=== PATIENT | female | born 1960 | race Caucasian/White ===

== ENCOUNTER → 2016-07-03 | Outpatient (CLI) | payer BC | LOC: GMAM 14:17 | PROVIDERS: ATTEND Family Medicine | DX: I42.2 Other hypertrophic cardiomyopathy (principal) ==

== ENCOUNTER 2017-03-12 14:10 | Inpatient (IN) | payer BC ==
--- NOTE | 2017-03-12 15:00 | HP ---
SUPERVISING PHYSICIAN: Christopher Stephenson MD CHIEF COMPLAINT: Shortness of breath. HISTORY OF PRESENT ILLNESS: This is a 56-year-old female patient who has had complaints of shortness of breath for the past four to five days. It has progressively worsened to the point that she had doubled her Lasix. She also reported a significant weight gain. She went in to see her primary care physician, Dr. Estela Gagnon, this morning and at her appointment, she had scattered crackles throughout her lung brasher. Her O2 sats were in the upper 80s. She was significantly short of breath. Dr. Gagnon did some lab on her and her white count was 4.8, hemoglobin 8.1, hematocrit 24.9. Glucose was 82, BUN 46, creatinine 1.7. She has a significant history of gastroparesis due to her diabetes. Because of her shortness of breath and no relief in spite of increasing her Lasix, the patient was directly admitted to the hospital. PAST MEDICAL HISTORY: 1. Insulin-dependent diabetes mellitus. 2. Hypertension. 3. Chronic pain syndrome. 4. Anemia and chronic kidney disease. 5. Generalized anxiety disorder. 6. Gastroesophageal reflux disease. 7. Congestive heart failure with an ejection fraction in June of 2016 of 55% . PAST SURGICAL HISTORY: 1. Hysterectomy. 2. Cholecystectomy. 3. 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 CURRENT MEDICATIONS: Per the EMR and awaiting verification. ALLERGIES: PENICILLIN, PHENERGAN. FAMILY HISTORY: Positive for diabetes, coronary artery disease and cerebrovascular accident. SOCIAL HISTORY: She is . She has two children. She denies any tobacco or ETOH or illicit drug use. REVIEW OF SYSTEMS: GENERAL: Positive for fatigue and weight gain. Negative for fever. HEENT: Negative for sinus symptoms, ear pain, vision changes or sore throat. RESPIRATORY: Positive for shortness of breath and wheezing. Negative for cough. CARDIAC: Positive for pedal edema. Negative for chest pain or tachycardia. GASTROINTESTINAL: Negative for nausea, vomiting, diarrhea, constipation or abdominal pain. GENITOURINARY: Negative for hematuria, dysuria or polyuria. NEUROLOGIC: Positive for weakness. Negative for headache, dizziness, or seizures. PHYSICAL EXAMINATION: VITAL SIGNS: Afebrile. Heart rate 75. Blood pressure 190/81. Respiratory rate 20. O2 saturation 89%. GENERAL: This is a 56-year-old, obese female who appears to be moderately ill. HEENT: Normocephalic, atraumatic. Pupils are equal and reactive. Oropharynx is clear. NECK: Supple without mass. No discernible jugular venous distention. RESPIRATORY: A few scattered crackles throughout. There are decreased breath sounds at the bases. No wheezing noted. She is dyspneic and can only speak in short phrases and cannot speak in complete sentences. CARDIOVASCULAR: Regular rate and rhythm. ABDOMEN: Soft, nondistended, nontender. Bowel sounds are positive. EXTREMITIES: Bilateral pedal edema at +1 to +2. Pedal pulses are palpable at + 1 bilaterally. SKIN: Warm and dry. NEUROLOGIC: Awake, alert and oriented times three. LABORATORY: As per the history of present illness plus D-dimer is 584, BNP 1, 040, magnesium 2.4, glucose 398. Chest x-ray shows no radiographic abnormalities. All other labs and films have been reviewed via the EMR. ASSESSMENT: 1. Acute exacerbation of congestive heart failure, with EF of 55% and unknown etiology. 2. Shortness of breath, most likely secondary to #1. 3. Diabetes mellitus, type 2, poorly controlled. 4. Gastroparesis secondary to her diabetes with multiple admissions due to nausea and vomiting from the gastroparesis. 5. Gastroesophageal reflux disease. 6. Hypertension. 7. Chronic kidney disease, stage 3, with a baseline creatinine of 1.6 to 2.3. 8. Anemic and chronic kidney disease, presently with a hemoglobin of 8.1 and hematocrit 2of 4.9. PLAN: We will admit the patient to the hospital. I will restart her home medications. I have also placed her on a.c. and h.s. sliding scale insulin. I have given her an initial dose of Bumex and repeated it this evening. I will change her Lasix to IV due to her poor absorption related to her gastroparesis. I will need to get her records from her primary care physician for her echocardiogram report. I have given her Protonix for ulcer prophylaxis and SCDs for her DVT prophylaxis. Because of her anemia, I will hold off on giving her any Lovenox. I will also do stool guaiacs although her anemia is most likely due to her chronic kidney disease. Her D-dimer is elevated, so I will do a bilateral lower extremity ultrasound. We are unable to do a CT of the chest at this time due to her elevated creatinine. I will do some routine lab in the morning and we will continue to monitor closely and follow as needed. Dr. Stephenson is the collaborating physician and available for consultation. . #[id number] [facility]ITAL[facility]
[2017-03-12] MEDS ORDERED: LEVALBUTEROL NEBS 1.25 MG/3 ML VIAL INH PRN (16:15)
[2017-03-12] MEDS ORDERED: ACETAMINOPHEN 325 MG TAB PO PRN (16:15)
[2017-03-12] MEDS ORDERED: ONDANSETRON INJ 4 MG/2 ML VIAL IV PRN (16:15)
[2017-03-12] MEDS ORDERED: BUMETANIDE 0.25 MG/ML VIAL IV ONE (16:30)
[2017-03-12] MEDS ORDERED: PANTOPRAZOLE SODIUM IV 40 MG VIAL IV SCH (16:30)
[2017-03-12] MEDS ORDERED: IV SET AND CAP CHANGE INJ INJ SCH (16:30)
[2017-03-12] MEDS ORDERED: DEXTROSE 50% 25 GM/50 ML SYG IV PRN (20:19)
[2017-03-12] MEDS ORDERED: GLUCAGON INJ 1 MG VIAL SUBCU PRN (20:19)
[2017-03-12] MEDS ORDERED: ALPRAZolam 0.5 MG TAB PO PRN (20:20)
[2017-03-12] MEDS ORDERED: HYDROcodone 7.5MG/APAP 325MG 1 EA TAB ONE (22:00)
[2017-03-12] MEDS: diphenhydrAMINE HCL 25 MG CAP PO SCH (22:02)
[2017-03-12] MEDS: GABAPENTIN 300 MG CAP PO SCH (22:02)
[2017-03-12] MEDS: INSULIN LISPRO 100 UNITS/ML PEN SUBCU SCH (22:02)
[2017-03-12] MEDS: INSULIN DETEMIR 100 UNITS/ML PEN SUBCU SCH (22:02)
--- NOTE | 2017-03-12 22:10 | US ---
EXAM DESCRIPTION: Venous,Lower Extremity LT (accession [id number]), Venous,Lower Extremity RT (accession [id number]) CLINICAL HISTORY: elevated d-dimer and sob COMPARISON: None Available TECHNIQUE: Duplex images of the common femoral, greater saphenous, superficial femoral, popliteal, peroneal, and posterior tibial veins of both lower extremities were submitted FINDINGS: All of the above-mentioned venous structures demonstrate normal spontaneous flow with respiratory phasicity and were fully compressible. IMPRESSION: No sonographic evidence of acute DVT within the lower extremities. Electronically signed by: Uli Ha MD 03/12/2017 10:09 PM CDT Workstation: [email or web address]
--- NOTE | 2017-03-12 22:10 | US ---
EXAM DESCRIPTION: Venous,Lower Extremity LT (accession [id number]), Venous,Lower Extremity RT (accession [id number]) CLINICAL HISTORY: elevated d-dimer and sob COMPARISON: None Available TECHNIQUE: Duplex images of the common femoral, greater saphenous, superficial femoral, popliteal, peroneal, and posterior tibial veins of both lower extremities were submitted FINDINGS: All of the above-mentioned venous structures demonstrate normal spontaneous flow with respiratory phasicity and were fully compressible. IMPRESSION: No sonographic evidence of acute DVT within the lower extremities. Electronically signed by: Uli Ha MD 03/12/2017 10:09 PM CDT Workstation: [id number]
[2017-03-12] MEDS: HYDROcodone 7.5MG/APAP 325MG 1 EA TAB PO PRN (22:20)
[2017-03-12] MEDS: amLODIPine BESYLATE 5 MG TAB PO SCH (22:45)
[2017-03-13] MEDS: HYDROcodone 7.5MG/APAP 325MG 1 EA TAB PO PRN ×3 (05:48→17:11)
[2017-03-13] MEDS ORDERED: diphenhydrAMINE HCL 50 MG/ML VIAL IV ONE (08:50)
[2017-03-13] MEDS ORDERED: ACETAMINOPHEN 325 MG TAB PO ONE (08:50)
[2017-03-13] MEDS ORDERED: FUROSEMIDE INJ 40 MG/4 ML VIAL IV ONE (08:50)
[2017-03-13] MEDS: GABAPENTIN 300 MG CAP PO SCH ×3 (08:59→20:08)
[2017-03-13] MEDS ORDERED: SODIUM CHLORIDE 0.9% 500ML 500 ML IVS SCH (09:00)
[2017-03-13] MEDS: INSULIN LISPRO 100 UNITS/ML PEN SUBCU SCH ×4 (09:00→20:59)
[2017-03-13] MEDS ORDERED: NON-FORMULARY MEDICATION 1 EA MIS (Benazepril Hcl [Benazepril Hcl] 40 MG) PO SCH (09:00)
[2017-03-13] MEDS ORDERED: POTASSIUM CHLORIDE 10 MEQ TAB PO SCH (09:00)
[2017-03-13] MEDS: ASPIRIN EC 81 MG TAB PO SCH (09:00)
[2017-03-13] MEDS: PANTOPRAZOLE SODIUM TAB 40 MG PO SCH (14:00)
[2017-03-13] MEDS: SERTRALINE HCL 50 MG TAB PO SCH (14:00)
[2017-03-13] MEDS: METOPROLOL SUCCINATE XL 100 MG TAB PO SCH (14:05)
[2017-03-13] MEDS ORDERED: GABAPENTIN 300 MG CAP ONE (14:28)
[2017-03-13] MEDS ORDERED: CYANOCOBALAMIN INJ 1,000 MCG/ML INJ IM ONE (16:51)
[2017-03-13] MEDS ORDERED: cloNIDine HCL 0.1 MG TAB PO PRN (18:52)
--- NOTE | 2017-03-13 18:56 | PCM.CORE ---
Physician DVT/VTE - Contraindications Medication Contraindication: Medical Contraindication - Nurse DVT Assessment & Total Each Risk Factor Represents 1 Point: Age 41-60 DVT Assessment Score: 1 - 0-1 Low Risk Treatments: Early Ambulation, Low Risk no further treatment or intervention needed
--- NOTE | 2017-03-13 19:09 | PN ---
DATE: 03/13/17 SUPERVISING PHYSICIAN: Christopher Stephenson M.D. SUBJECTIVE: The patient is lying in bed. She complains of weakness and shortness of breath, but it has improved since yesterday. Her swelling is somewhat better since she has gotten the IV diuretics. No complaints of chest pain, dizziness, nausea or vomiting. OBJECTIVE: VITAL SIGNS: She is afebrile, heart rate 71, blood pressure 171/86, respiratory rate 16, O2 sat is 93%. She took in 360 mL on her day 1 admission and she diuresed almost 3 liters in the last 24 hours. RESPIRATORY: Essentially clear to auscultation bilaterally, slightly diminished at the bases. CARDIAC: Regular rate and rhythm. ABDOMEN: Soft, nondistended, non- tender. Bowel sounds are positive. EXTREMITIES: No cyanosis or clubbing. There is a trace of pedal edema bilaterally. NEUROLOGIC: She is awake, alert and oriented times three. LABORATORY: WBCs are 4, hemoglobin 7.3, hematocrit 22. Sodium 136, potassium 4.7, chloride 105, carbon dioxide 25, BUN 53, creatinine 1.74, glucose 138, magnesium 2.2, calcium 8.6. Iron is 41, TIBC 208.6, iron saturation 19.6, Vitamin B12 is 358, serum folate 12.58. Reticulocyte count is pending. Ferritin 67.7. MRSA surveillance culture of the nose shows preliminary gram positive cocci. RADIOLOGY: Bilateral lower extremity ultrasound shows no sonographic evidence of an acute DVT within the lower extremities. All other labs and films have been reviewed via the EMR. ASSESSMENT: 1. Acute exacerbation of congestive heart failure with unknown etiology and an ejection fraction of 55% in June of 2016. 2. Shortness of breath most likely secondary to #1. 3. Anemia with a normochromic normocytic presentation, although she does have a low iron saturation and a low TIBC with a normal iron level and a Vitamin B12 level that is on the lower side of normal with a hemoglobin of 7.3 this morning. 4. Diabetes mellitus type 2 poorly controlled. 5. Gastroparesis secondary to her diabetes with multiple admissions due to nausea and vomiting from the gastroparesis in the past. 6. Gastroesophageal reflux disease. 7. Hypertension. 8. Chronic kidney disease stage III with a baseline creatinine of 1.6 to 2.3. PLAN: We will continue present supportive care. She is presently receiving 2 units of packed red blood cells. She will receive an extra dose of Lasix between the units. I will repeat her lab in the morning. Her clinical presentation is much improved since yesterday. Tomorrow will do an ambulation study and make sure her oxygen saturations are stable. I will continue with her IV Lasix for now. Will need to change her over to her oral Lasix tomorrow or the next day as she has put out quite a bit of urine. Her swelling has decreased as well as her symptom of shortness of breath have diminished. We will continue to monitor closely and follow as needed. Dr. Stephenson is the collaborating physician available for consultation. #[id number] [facility]
[2017-03-13] MEDS: diphenhydrAMINE HCL 25 MG CAP PO SCH (20:08)
[2017-03-13] MEDS: amLODIPine BESYLATE 5 MG TAB PO SCH (20:08)
[2017-03-13] MEDS: INSULIN DETEMIR 100 UNITS/ML PEN SUBCU SCH (20:59)
[2017-03-13] MEDS ORDERED: BUMETANIDE 0.25 MG/ML VIAL IV ONE (21:42)
[2017-03-13] MEDS: CYCLOBENZAPRINE HCL 10 MG TAB PO PRN (21:59)
[2017-03-14] MEDS: HYDROcodone 7.5MG/APAP 325MG 1 EA TAB PO PRN ×3 (04:13→21:07)
[2017-03-14] MEDS: SODIUM CHLORIDE 0.9% (FLUSH) 10 ML SYG IV PRN ×3 (06:08→20:21)
[2017-03-14] MEDS: PANTOPRAZOLE SODIUM TAB 40 MG PO SCH (06:08)
--- NOTE | 2017-03-14 07:04 | RAD ---
Procedure: XR CHEST 2 VIEWS Exam Date: 03/14/2017 Ordering Provider: CHESTER WHALEY Clinical Indication: chf Comparison: 06/06/2016 Findings: Cardiac silhouette: Borderline enlarged. Pulmonary vasculature : Perihilar interstitial infiltrates. Mediastinal contour: Normal Aortic contour: Normal Focal lung consolidation: No focal lung consolidation. Pleural effusion: Small bilateral pleural effusions. Pneumothorax: None Acute bony or soft tissue abnormality: None Impression: 1. Mild edema with small bilateral pleural effusions. Electronically signed by: Joao Quinones MD 03/14/2017 7:02 AM CDT
[2017-03-14] MEDS ORDERED: LISINOPRIL 10 MG TAB ONE (07:53)
[2017-03-14] MEDS: INSULIN LISPRO 100 UNITS/ML PEN SUBCU SCH ×4 (07:59→21:00)
[2017-03-14] MEDS: SERTRALINE HCL 50 MG TAB PO SCH (08:10)
[2017-03-14] MEDS: METOPROLOL SUCCINATE XL 100 MG TAB PO SCH (08:10)
[2017-03-14] MEDS: GABAPENTIN 300 MG CAP PO SCH ×3 (08:10→20:22)
[2017-03-14] MEDS: LISINOPRIL 10 MG TAB PO SCH (08:10)
[2017-03-14] MEDS: POTASSIUM CHLORIDE 10 MEQ TAB PO SCH (08:10)
[2017-03-14] MEDS: ASPIRIN EC 81 MG TAB PO SCH (08:11)
[2017-03-14] MEDS: FUROSEMIDE 40 MG TAB PO SCH (09:40)
[2017-03-14] MEDS ORDERED: cloNIDine HCL 0.1 MG TAB PO PRN (10:34)
[2017-03-14] MEDS: METOCLOPRAMIDE HCL 5 MG TAB PO SCH ×3 (11:17→20:22)
[2017-03-14] MEDS: CYCLOBENZAPRINE HCL 10 MG TAB PO PRN (20:14)
[2017-03-14] MEDS: diphenhydrAMINE HCL 25 MG CAP PO SCH (20:22)
[2017-03-14] MEDS: amLODIPine BESYLATE 5 MG TAB PO SCH (20:22)
[2017-03-14] MEDS: INSULIN DETEMIR 100 UNITS/ML PEN SUBCU SCH (21:01)
--- NOTE | 2017-03-14 21:05 | PN ---
DATE: 03/14/17 SUPERVISING PHYSICIAN: Christopher Stephenson M.D. SUBJECTIVE: The patient says she is feeling much better today. She has had no chest pains. No nausea or vomiting. She said she has had some diarrhea but it has been painless. No abdominal pains. She remains afebrile. OBJECTIVE: VITAL SIGNS: Temperature 97.6, pulse 66, blood pressure 187/82, respirations 18, satting 93% on room air. I's and O's show a negative balance of 1275 with 1825 in, 3100 out. Weight 116.6 kg. CHEST: Lungs are clear to auscultation, just slightly diminished towards the bases. HEART: Regular rate and rhythm. ABDOMEN: Soft, nondistended with positive bowel sounds. No rebound tenderness. EXTREMITIES: No edema noted today. NEUROLOGIC: She is alert and oriented times three. LABORATORY: White count 3,600 with hemoglobin improved up to 9.3, hematocrit 28.8 after 2 units of packed red blood cells are transfused. Platelet count 157 ,000. Differential shows to be within normal limits. Reticulocyte count is 4.1 with an increased absolute reticulocyte count of 89,380. Chemistries: She did have a low blood sugar this morning, otherwise blood sugars have been between 38 and 288. Liver functions show to be within normal limits. RADIOLOGY: Chest x-ray today two view chest per radiology interpretation showed mild edema with bilateral pleural effusions. ASSESSMENT: 1. Acute exacerbation of congestive heart failure with unknown etiology and an ejection fraction of 55% as noted in June 2016. 2. Increasing shortness of breath likely secondary to #1 improved after infusion of 2 units of packed red blood cells. 3. Anemia with normochromic normocytic presentation with low iron saturation and low TIBC with normal level of iron and Vitamin B12 likely secondary to chronic illness. Still cannot completely rule out acute loss. 4. Diabetes mellitus type 2 poorly controlled. 5. Gastroparesis secondary to diabetes and multiple admissions in the past due to exacerbation. 6. Gastroesophageal reflux disease. 7. Hypertension. 8. Chronic kidney disease stage III with a baseline creatinine of 1.6 to 2.3 likely contributing to the ongoing anemia. 9. Past history of ulcerative colitis just recently diagnosed with the last year. The patient denies any abdominal pains or any blood in stools. This certainly could be one source of the ongoing anemia which will need further followup in the outpatient setting. PLAN: The patient did receive 2 units of packed red blood cells yesterday. At this point, her H&H has improved. Will continue to monitor this closely tonight and make sure she remains stable. She has been transitioned to her normal Lasix dose p.o. Anticipate hopefully discharging tomorrow. In the meantime, we will collect occult bloods on her as well as do C reactive protein as the patient notes that she has just been recently diagnosed with ulcerative colitis. Once discharged, she will need close clinical followup again on Friday when she is already scheduled to see Dr. Gagnon. Until then, will continue to monitor and treat appropriately. #[id number] MTD[facility]
[2017-03-15] MEDS: PANTOPRAZOLE SODIUM TAB 40 MG PO SCH (06:20)
[2017-03-15] MEDS: INSULIN LISPRO 100 UNITS/ML PEN SUBCU SCH ×2 (08:17→12:13)
[2017-03-15] MEDS: GABAPENTIN 300 MG CAP PO SCH (08:18)
[2017-03-15] MEDS: METOCLOPRAMIDE HCL 5 MG TAB PO SCH ×2 (08:18→12:19)
[2017-03-15] MEDS: SERTRALINE HCL 50 MG TAB PO SCH (08:19)
[2017-03-15] MEDS: POTASSIUM CHLORIDE 10 MEQ TAB PO SCH (08:19)
[2017-03-15] MEDS: LISINOPRIL 10 MG TAB PO SCH (08:19)
[2017-03-15] MEDS: FUROSEMIDE 40 MG TAB PO SCH (08:19)
[2017-03-15] MEDS: ASPIRIN EC 81 MG TAB PO SCH (08:19)
[2017-03-15] MEDS: METOPROLOL SUCCINATE XL 100 MG TAB PO SCH (08:19)
[2017-03-15] MEDS: SODIUM CHLORIDE 0.9% (FLUSH) 10 ML SYG IV PRN (08:20)
[2017-03-15] MEDS: HYDROcodone 7.5MG/APAP 325MG 1 EA TAB PO PRN (09:16)
[2017-03-15 10:23] VITALS: TEMP 97.5; O2SAT 93
[2017-03-15 11:11] VITALS: BP 179/77
--- NOTE | 2017-03-21 15:00 | DS ---
SUPERVISING PHYSICIAN: Gamaliel Gagnon MD DISCHARGE DIAGNOSIS: 1. Acute on chronic exacerbation of congestive heart failure with unknown etiology and last ejection fraction of 55% as noted on echocardiogram in June 2016, showing improvement after diuresis with Lasix. 2. Increased shortness of breath, secondary to #1, improved after infusion of packed red blood cells as well as aggressive diuresis. 3. Anemia with normochromic/normocytic presentation with low iron saturation and low TIBC with normal level of iron and Vitamin B12, likely secondary to chronic illness with exacerbation from acute loss of uncertain etiology. 4. Diabetes mellitus, type 2, poorly controlled. 5. Gastroparesis secondary to diabetes and multiple admissions in the past due to exacerbation. 6. Gastroesophageal reflux disease. 7. Hypertension. 8. Chronic kidney disease, stage III, with a baseline creatinine of 1.6 to 2.3 , likely contributing to anemia due to decreased erythropoietin production. 9. Past history of ulcerative colitis just recently diagnosed with the last year with a normal C-reactive protein. The patient denies any abdominal pains or any obvious blood in stools, requiring continued followup in the outpatient setting. HISTORY OF PRESENT ILLNESS: Ms. Kothari is a 56-year-old female patient who had complaint of shortness of breath for the past four to five days prior to admission. It had progressively worsened to the point that she had doubled her Lasix. She also reported a significant weight gain. She went in to see her primary care physician, Dr. Estela Gagnon, on morning of admission and at her appointment, she had scattered rales throughout her lung brasher. Her O2 sats were in the upper 80s on room air. She was significantly short of breath. Labs in the clinic at that time showed white count was 4.8, BUN 46, creatinine 1.7. She has a significant history of gastroparesis due to her diabetes. Because of her shortness of breath and no relief in spite of increasing her Lasix, the patient was directly admitted to the hospital for continuation of treatment and further evaluation. She was admitted in stable condition. LABORATORY: Initial white count on admission was 4. At discharge, it was 4, 000. Hemoglobin 7.3, hematocrit 22.0. After transfusion of 2 units of packed red blood cells, hemoglobin had stabilized and at discharge was 9.3 and hematocrit 27.7. Platelet count was 165,000 at discharge. Differential was within normal limits without left shift. Retic count was 4.1 with absolute retic count elevated to 89,380. Coagulation studies showed a slightly elevated D-dimer at 584. Chemistries initially on admission showed normal electrolytes. BUN was elevated at 53, creatinine 1.74. Glucose initially was elevated at 398, magnesium 2.4. BNP was elevated at 1,040. B12 was 358, serum folate 12.58 prior to initiation of packed red blood cells. Further iron studies showed she had a normal iron at 41, low end of normal, with iron saturation low at 208 and ferritin was 67.7, total iron saturation 19.6. After initiation of treatment and transfusion, at discharge, electrolytes were within normal limits with potassium 4.7, BUN 50, creatinine 1.4, calcium 8.8. Blood sugars were fairly well controlled except for some lows that she had with the lowest being 42. She went up to a high 398, which was on admission. Urinalysis showed 500 glucose, trace of blood with microscopic revealing 3 to 5 RBCs, otherwise within normal limits. She had one occult blood that was negative. C-reactive protein was within normal limits at 0.5. MICROBIOLOGY: MRSA surveillance culture were negative at 72 hours. RADIOLOGY: Bilateral lower extremity ultrasounds showed no significant evidence of acute deep venous thrombosis within the lower extremities per radiologic interpretation. Chest x-ray after admission on 03/14/17 per radiologic interpretation showed mild edema with small bilateral pleural effusions. HOSPITAL COURSE: Ms. Kothari was admitted as noted on 03/12/17 for severe anemia and exacerbation of congestive heart failure. She was given Lasix as well as transfused 2 units of packed red blood cells. Clinically, she showed improvement with diuresis as well as her hemoglobin and hematocrit had been stabilized. It was felt that on the morning of discharge she was clinically stable and was well enough to be followed in the outpatient setting. PLAN: Ms. Kothari was discharged on 03/15/17 with instructions to have close clinical followup with Dr. Gagnon. She was to call Dr. Gagnon's office Friday after discharge to schedule appointment. She was to resume home medications as instructed with note of change to hydralazine increased to 3 times a day due to hypertension until she was seen in followup. She was taking vitamin daily with iron and folic acid combination, [id number], of choice. She was to keep a blood pressure log if possible and to take this with her to followup appointment to see Dr. Gagnon. She was scheduled to see Dr. Gagnon as scheduled on Friday after discharge. She was to return to the hospital should she have any concerning symptoms or failure to improve her condition. DISCHARGE PRESCRIPTIONS: 1. Hydralazine 25 mg 3 times a day. 2. vitamin with iron and folic acid 1 daily. All other medications were continued as previous. DIET AT DISCHARGE: Diabetic diet as tolerated. She was to limit her fluid intake to less than 1800 mL per 24 hours and to watch her weight closely and to notify Dr. Gagnon of any drastic changes in a 24 hour period. ACTIVITY: Increase activity as tolerated. CONDITION AT DISCHARGE: Stable and improved. #[id number] [facility]
== END 2017-03-15 13:30 | disposition home or self-care (01) | DRG 292 ==
LOC: GMAM 14:10 → MS 14:58
PROVIDERS: ADMIT Nurse Practitioner Acute Care; ATTEND Nurse Practitioner Family
PROC: 30233N1 Transfusion of Nonautologous Red Blood Cells into Peripheral Vein, Percutaneous Approach (ICD-10-PCS; principal; 2017-03-13)
DX: I13.0 Hypertensive heart and chronic kidney disease with heart failure and stage 1 through stage 4 chronic kidney disease, or unspecified chronic kidney disease (principal); K51.90 Ulcerative colitis, unspecified, without complications; D62 Acute posthemorrhagic anemia; I50.9 Heart failure, unspecified; N18.9 Chronic kidney disease, unspecified; N18.3 Chronic kidney disease, stage 3 (moderate); D63.1 Anemia in chronic kidney disease; E11.22 Type 2 diabetes mellitus with diabetic chronic kidney disease; E11.43 Type 2 diabetes mellitus with diabetic autonomic (poly)neuropathy; K31.84 Gastroparesis; K21.9 Gastro-esophageal reflux disease without esophagitis; G89.4 Chronic pain syndrome; F41.1 Generalized anxiety disorder; Z89.421 Acquired absence of other right toe(s); Z88.0 Allergy status to penicillin; Z88.8 Allergy status to other drugs, medicaments and biological substances; Z79.4 Long term (current) use of insulin; Z79.84 Long term (current) use of oral hypoglycemic drugs; Z79.899 Other long term (current) drug therapy

== ENCOUNTER 2017-05-28 18:18 | Emergency (ER) | payer BC ==
--- NOTE | 2017-05-28 18:21 | ED.PDOC ---
History of Present Illness - General Chief Complaint: GI Problem Stated Complaint: nausea/vomiting/abdominal pain Time Seen by Provider: 05/28/17 18:19 Information Source: patient, RN notes reviewed, Vital Signs reviewed Exam Limitations: no limitations Additional Information: Pt reports she has not had bouts like this for quite some time. She has been diagnosed with gastroparesis secondary to DM in the past. She states Reglan and Dilaudid is usually all that helps her. - History of Present Illness Abdominal Pain Onset Location: generalized abdomen Quality: cramping Timing/Duration: 4-6 hours Improving Factors: medication - Reglan and Dilaudid in the past Worsening Factors: nothing Associated Symptoms: nausea/vomiting Review of Systems - Review of Systems Constitutional: States: no symptoms reported EENTM: States: no symptoms reported Respiratory: States: no symptoms reported Cardiology: States: no symptoms reported Gastrointestinal/Abdominal: States: see HPI, abdominal pain, nausea, vomiting Genitourinary: States: no symptoms reported Musculoskeletal: States: no symptoms reported Skin: States: no symptoms reported Neurological: States: no symptoms reported Endocrine: States: no symptoms reported Hematologic/Lymphatic: States: no symptoms reported Past Medical History (General) - Patient Medical History Hx Seizures: No Hx Stroke: No Hx Dementia: No Hx Asthma: No Hx of COPD: No Hx Cardiac Disorders: Yes - Cardiomyopathy Hx Congestive Heart Failure: Yes - state thaT IT IS FLUID OVERLOAD Hx Pacemaker: No Hx Hypertension: Yes Hx Thyroid Disease: No 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 Hx Gastroesophageal Reflux: No Hx Renal Disease: Yes Hx Cancer: No Hx of HIV: Yes Hx Hepatitis C: No Hx MRSA: Yes - 2 toes 2006 MRSA Source:: Wound - Vaccination History Hx Tetanus, Diphtheria Vaccination: No Hx Influenza Vaccination: Yes Hx Pneumococcal Vaccination: Yes - Social History Hx Tobacco Use: No Hx Alcohol Use: No Hx Substance Use: No Hx Substance Use Treatment: No Hx Depression: No Hx Physical Abuse: No Hx Emotional Abuse: No - Female History Patient : No Family Medical History - Family History Mother Family History: Unknown Living Status: Age at (years of age): 55 Cause of : Suicide Hx Family Asthma: No Hx Family Congestive Heart Failure: No Hx Family Hypertension: Yes Hx Family Stroke: No Hx Cardiac Disease: No Hx Family Diabetes: Yes Hx Family Cancer: Yes Hx Family;Other: Depression Father Age (years): 77 Living Status: Still Living Hx Family Asthma: No Hx Family Congestive Heart Failure: No Hx Family Hypertension: Yes Hx Family Stroke: No Hx Cardiac Disease: No Hx Family Diabetes: No Hx Family Cancer: No Physical Exam - Physical Exam General Appearance: Ill Appearing - with occasional wretching, Unkempt Eyes, Ears, Nose, Throat Exam: PERRL/EOMI, normal ENT inspection Neck: non-tender, full range of motion, supple Respiratory: no respiratory distress, no accessory muscle use Cardiovascular/Chest: regular rate, rhythm Gastrointestinal/Abdominal: soft Back Exam: normal inspection Extremity: normal range of motion, non-tender, normal inspection 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 Pt's labs stable compared with previous labs. Pt stable for d/c home with strict return precautions. 05/28/17 20:39 Pt with some drug-seeking behavior. I would limit narcotics in the future if she establishes a pattern of frequent ER visits stating that Dilaudid is the only thing that will help her. - Results/Orders Results/Orders: 05/28/17 18:24 URINALYSIS Stat Laboratory Results - last 24 hr 05/28/17 05/28/17 19:50 19:50 WBC 7.4 RBC 3.41 L Hgb 10.5 L Hct 31.4 L MCV 92.0 MCH 30.7 MCHC 33.6 RDW 13.6 Plt Count 201 MPV 7.1 L Absolute Neuts (auto) 6.20 Absolute Lymphs (auto) 0.80 L Absolute Monos (auto) 0.30 Absolute Eos (auto) 0.10 Absolute Basos (auto) 0.00 Neutrophils % 83.5 H Lymphocytes % 10.3 L Monocytes % 3.7 Eosinophils % 2.0 Basophils % 0.5 Sodium 135 Potassium 5.3 H Chloride 103 Carbon Dioxide 18 L Anion Gap 19.3 H BUN 58 H Creatinine 1.72 H BUN/Creatinine Ratio 33.7 H Random Glucose 446 H* Serum Osmolality 305.9 H Calcium 8.8 Total Bilirubin 0.7 AST 21 ALT 21 Alkaline Phosphatase 61 Serum Total Protein 7.7 Albumin 3.3 Globulin 4.4 H Albumin/Globulin Ratio 0.8 L Lipase 41 Departure - Departure Clinical Impression: Gastroparesis due to secondary diabetes Time of Disposition: 20:55 Disposition: Discharge to Home or Self Care Condition: Fair Departure Forms: ED Discharge - Pt. Copy, Patient Portal Self Enrollment Instructions: DI for Abdominal Pain-Adult Referrals: Gamaliel Gagnon MD [Primary Care Provider] - 1-5 Days Home Medications: Ambulatory Orders ALPRAZolam [Xanax] 0.5 mg PO Q6HR PRN 07/15/13 Metoclopramide Tab [Reglan Tab] 10 mg PO .AC/HS 07/15/13 Sertraline HCl [Zoloft] 200 mg PO DAILY 07/15/13 Hydrocodone-Acetaminophen [Lortab 7.5-325 mg] 1 - 2 tab PO Q4H PRN 02/19/15 Aspirin [Aspirin EC] 81 mg PO DAILY 06/16/15 Gabapentin 300 mg PO TID 06/16/15 Multiple Vitamin [Multi-Vitamin] 1 tab PO DAILY 06/16/15 Metoprolol Succinate [Metoprolol Succinate ER] 200 mg PO DAILY 07/26/15 Benazepril HCl 10 mg PO DAILY 04/28/16 Cyclobenzaprine HCl 10 mg PO BEDTIME PRN 04/28/16 Insulin Lispro [Humalog Kwikpen] 100 unit SC ACHS 04/28/16 diphenhydrAMINE HCL [Benadryl] 50 mg PO BEDTIME 04/28/16 Benazepril HCl 40 mg PO DAILY 03/12/17 Clonidine HCl 0.1 mg PO PRN PRN 03/12/17 Furosemide Tab [Lasix Tab] 40 mg PO QAM 03/12/17 Insulin Detemir [Levemir Pen] 30 units SUBCU BEDTIME 03/12/17 Potassium Chloride [Potassium Chloride ER] 10 meq PO QAM 03/12/17 amLODIPine BESYLATE [Norvasc] 10 mg PO DAILY 03/12/17 Prenat Vit W/ Iron Carbonyl-Fe [Ob Complete/Dha 30-10-1-200 mg] 1 cap PO DAILY # 30 cap 03/15/17 hydrALAZINE HCl [HydrALAzine HCl] 25 mg PO TID tab 03/15/17 Additional Instructions: Follow-up with Primary Care Provider within the next 3 to 5 days at least with a phone call in order to let them know about your flare up. Stay well hydrated with water. Use the reglan you have at home as needed/as directed.
[2017-05-28 18:48] VITALS: TEMP 96.3
[2017-05-28] MEDS ORDERED: SODIUM CHLORIDE 0.9% 1000ML 1,000 ML IVS ONE (18:58)
[2017-05-28] MEDS ORDERED: diphenhydrAMINE HCL 50 MG/ML VIAL IV ONE (18:58)
[2017-05-28] MEDS ORDERED: METOCLOPRAMIDE HCL INJ 10 MG/2 ML VIAL IV ONE (18:58)
[2017-05-28] MEDS ORDERED: HYDROmorphone HCL INJ 2 MG/ML VIAL IV ONE ×2 (19:29→20:37)
[2017-05-28] MEDS ORDERED: HYDROmorphone HCL INJ 2 MG/ML VIAL ONE (20:44)
[2017-05-28 20:53] VITALS: BP 142/59; O2SAT 93
== END 2017-05-28 21:06 | disposition home or self-care (01) ==
LOC: ER 18:18
DX: E11.43 Type 2 diabetes mellitus with diabetic autonomic (poly)neuropathy (principal); K31.84 Gastroparesis; I50.9 Heart failure, unspecified; N18.9 Chronic kidney disease, unspecified; E11.22 Type 2 diabetes mellitus with diabetic chronic kidney disease; I13.0 Hypertensive heart and chronic kidney disease with heart failure and stage 1 through stage 4 chronic kidney disease, or unspecified chronic kidney disease; Z79.4 Long term (current) use of insulin; Z79.82 Long term (current) use of aspirin; Z79.899 Other long term (current) drug therapy
CPT/HCPCS: 36415; 80053; 83690; 85025; J1170; J1200; J2765; J7030

== ENCOUNTER → 2017-07-14 | Outpatient (CLI) | payer BC | LOC: GMAM 14:37 | PROVIDERS: ATTEND Family Medicine | DX: R80.9 Proteinuria, unspecified (principal) ==

== ENCOUNTER 2017-07-16 13:31 | Emergency (ER) | payer BC ==
[2017-07-16] MEDS ORDERED: ONDANSETRON INJ 4 MG/2 ML VIAL IV ONE (15:34)
[2017-07-16] MEDS ORDERED: SODIUM CHLORIDE 0.9% 1000ML 1,000 ML IVS ONE ×3 (15:34→18:04)
[2017-07-16] MEDS ORDERED: MORPHINE SULFATE INJ 10 MG/ML VIAL IV ONE (15:35)
[2017-07-16 15:53] VITALS: TEMP 97.7
--- NOTE | 2017-07-16 16:19 | ED.PDOC ---
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 SHE WAS STARTED ON TAMIFLU. LATE YESTERDAY SHE NOTED NAUSEA AND THEN STARTED WITH VOMITING. SHE NOW HAS MYALGIAS, MALAISE AND VOMITING. DENIES ANY DIARRHEA. Allergies/Adverse Reactions: Allergies Penicillins Allergy (Verified 07/16/17 15:53) Promethazine [From Phenergan] Allergy (Verified 07/16/17 15:53) Home Medications: Ambulatory Orders ALPRAZolam [Xanax] 0.5 mg PO Q6HR PRN 07/15/13 Metoclopramide Tab [Reglan Tab] 10 mg PO .AC/HS 07/15/13 Sertraline HCl [Zoloft] 200 mg PO DAILY 07/15/13 Hydrocodone-Acetaminophen [Lortab 7.5-325 mg] 1 - 2 tab PO Q4H PRN 02/19/15 Aspirin [Aspirin EC] 81 mg PO DAILY 06/16/15 Gabapentin 300 mg PO TID 06/16/15 Multiple Vitamin [Multi-Vitamin] 1 tab PO DAILY 06/16/15 Metoprolol Succinate [Metoprolol Succinate ER] 200 mg PO DAILY 07/26/15 Benazepril HCl 10 mg PO DAILY 04/28/16 Cyclobenzaprine HCl 10 mg PO BEDTIME PRN 04/28/16 Insulin Lispro [Humalog Kwikpen] 100 unit SC ACHS 04/28/16 diphenhydrAMINE HCL [Benadryl] 50 mg PO BEDTIME 04/28/16 Benazepril HCl 40 mg PO DAILY 03/12/17 Clonidine HCl 0.1 mg PO PRN PRN 03/12/17 Furosemide Tab [Lasix Tab] 40 mg PO QAM 03/12/17 Insulin Detemir [Levemir Pen] 30 units SUBCU BEDTIME 03/12/17 Potassium Chloride [Potassium Chloride ER] 10 meq PO QAM 03/12/17 amLODIPine BESYLATE [Norvasc] 10 mg PO DAILY 03/12/17 Prenat Vit W/ Iron Carbonyl-Fe [Ob Complete/Dha 30-10-1-200 mg] 1 cap PO DAILY # 30 cap 03/15/17 hydrALAZINE HCl [HydrALAzine HCl] 25 mg PO TID tab 03/15/17 Review of Systems - Review of Systems Constitutional: States: chills, malaise, weakness EENTM: States: no symptoms reported Respiratory: States: no symptoms reported Cardiology: States: no symptoms reported Gastrointestinal/Abdominal: States: nausea, vomiting Genitourinary: States: no symptoms reported Musculoskeletal: States: no symptoms reported Skin: States: no symptoms reported Neurological: States: no symptoms reported Endocrine: States: no symptoms reported, see HPI Hematologic/Lymphatic: States: no symptoms reported All other Systems: Reviewed and Negative Past Medical History (General) - Patient Medical History Hx Seizures: No Hx Stroke: No Hx Dementia: No Hx Asthma: No Hx of COPD: No Hx Cardiac Disorders: Yes - Cardiomyopathy Hx Congestive Heart Failure: Yes - state thaT IT IS FLUID OVERLOAD Hx Pacemaker: No Hx Hypertension: Yes Hx Thyroid Disease: No 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 Hx Gastroesophageal Reflux: No Hx Renal Disease: Yes Hx Cancer: No Hx of HIV: Yes Hx Hepatitis C: No Hx MRSA: Yes - 2 toes 2006 MRSA Source:: Wound Surgical History: cholecystectomy, Hysterectomy, other - Vaccination History Hx Tetanus, Diphtheria Vaccination: No Hx Influenza Vaccination: Yes Hx Pneumococcal Vaccination: Yes - Social History Hx Tobacco Use: No Hx Alcohol Use: No Hx Substance Use: No Hx Substance Use Treatment: No Hx Depression: No Hx Physical Abuse: No Hx Emotional Abuse: No - Female History Patient : No Family Medical History - Family History Mother Family History: Unknown Living Status: Age at (years of age): 55 Cause of : Suicide Hx Family Asthma: No Hx Family Congestive Heart Failure: No Hx Family Hypertension: Yes Hx Family Stroke: No Hx Cardiac Disease: No Hx Family Diabetes: Yes Hx Family Cancer: Yes Hx Family;Other: Depression Father Age (years): 77 Living Status: Still Living Hx Family Asthma: No Hx Family Congestive Heart Failure: No Hx Family Hypertension: Yes Hx Family Stroke: No Hx Cardiac Disease: No Hx Family Diabetes: No Hx Family Cancer: No Physical Exam - Physical Exam General Appearance: Alert, Anxious, Obvious distress Eye Exam: bilateral normal ENT Exam: normal ENT inspection, pharynx normal, nasal congestion, nasal drainage Neck: non-tender, full range of motion, supple, normal inspection Respiratory: chest non-tender, lungs clear, normal breath sounds, no respiratory distress, no accessory muscle use Cardiovascular/Chest: normal peripheral pulses, regular rate, rhythm, no edema, no gallop, no JVD, no murmur Gastrointestinal/Abdominal: normal bowel sounds, non tender, soft, no organomegaly, no pulsatile mass Extremity: normal range of motion, non-tender Neurologic: no motor/sensory deficits, alert, normal mood/affect, oriented x 3 Skin Exam: normal color Lymphatic: no adenopathy Progress - Results/Orders Results/Orders: CBC WAS NORMAL. THE CMP HAS A GLUCOSE OF 916, CREATININE OF 3 AND BUN OF 62, K WAS 6.1, CO2 WAS 9, ANION GAP OF 32. THE SERUM ACETONE WAS LARGE. THE ABG'S REVEALED A PH OF 7.08, PCO2 OF 31,. IV FLUIDS HAVE BEEN STARTED WELL AN INSULIN DRIP. I HAVE CALLED [facility] AND WILL TRANSFER THIS PATIENT FOR A HIGHER LEVEL OF CARE. Departure - Departure Clinical Impression: Hyponatremia, Influenza Diabetic ketoacidosis associated with type 2 diabetes mellitus Qualifiers: Diabetes mellitus complication detail: without coma Qualified Code(s): E13.10 - Other specified diabetes mellitus with ketoacidosis without coma Time of Disposition: 18:23 Disposition: Transfer to Hospital Condition: Serious Referrals: Gamaliel Gagnon MD [Primary Care Provider] - 1-2 Weeks Home Medications: Ambulatory Orders ALPRAZolam [Xanax] 0.5 mg PO Q6HR PRN 07/15/13 Metoclopramide Tab [Reglan Tab] 10 mg PO .AC/HS 07/15/13 Sertraline HCl [Zoloft] 200 mg PO DAILY 07/15/13 Hydrocodone-Acetaminophen [Lortab 7.5-325 mg] 1 - 2 tab PO Q4H PRN 02/19/15 Aspirin [Aspirin EC] 81 mg PO DAILY 06/16/15 Gabapentin 300 mg PO TID 06/16/15 Multiple Vitamin [Multi-Vitamin] 1 tab PO DAILY 06/16/15 Metoprolol Succinate [Metoprolol Succinate ER] 200 mg PO DAILY 07/26/15 Benazepril HCl 10 mg PO DAILY 04/28/16 Cyclobenzaprine HCl 10 mg PO BEDTIME PRN 04/28/16 Insulin Lispro [Humalog Kwikpen] 100 unit SC ACHS 04/28/16 diphenhydrAMINE HCL [Benadryl] 50 mg PO BEDTIME 04/28/16 Benazepril HCl 40 mg PO DAILY 03/12/17 Clonidine HCl 0.1 mg PO PRN PRN 03/12/17 Furosemide Tab [Lasix Tab] 40 mg PO QAM 03/12/17 Insulin Detemir [Levemir Pen] 30 units SUBCU BEDTIME 03/12/17 Potassium Chloride [Potassium Chloride ER] 10 meq PO QAM 03/12/17 amLODIPine BESYLATE [Norvasc] 10 mg PO DAILY 03/12/17 Prenat Vit W/ Iron Carbonyl-Fe [Ob Complete/Dha 30-10-1-200 mg] 1 cap PO DAILY # 30 cap 03/15/17 hydrALAZINE HCl [HydrALAzine HCl] 25 mg PO TID tab 03/15/17 Critical Care Note - Critical Care Note Total Time (mins): 65 Comments: CRITICAL EVENT: INTRACTABLE VOMITING CRITICAL FINDINGS: DKA, PH OF 7.08, ACETONE LARGE, GLUCOSE OF 917, CREATININE OF 3.0, CO2 OF 9, SODIUM OF 119 CRITICAL ACTIONS: IV CRYSTALOIDS, INSULIN DRIP, SODIUM BICARBONATE, ANTIEMETICS , TRANSFER TO A HIGHER LEVEL OF CARE CRITICAL TIME: 65 MINUTES SYSTEMS AT RISK: CARDIOVASCULAR, NEUROLOGIC Transfer to Outside Facility - Transfer Information Accepting Provider:: SEVERO MARTINEZ MD Accepting Facility: [facility] Reason for Transfer: ICU
[2017-07-16] MEDS ORDERED: METOCLOPRAMIDE HCL INJ 10 MG/2 ML VIAL IV ONE ×2 (17:14→17:16)
[2017-07-16] MEDS ORDERED: INSULIN, REG.(HUMAN) 100 U/ML VIAL ONE (17:23)
[2017-07-16] MEDS ORDERED: SODIUM CHL 0.9% 250ML (AVIVA) 250 ML IVPB ONE (17:23)
[2017-07-16] MEDS ORDERED: INSULIN, REG.(HUMAN) 250 UNITS in SODIUM CHL 0.9% 250ML (AVIVA) 247.5 ML IVPB SCH ×2 (17:30)
[2017-07-16] MEDS ORDERED: SODIUM BICARBONATE VIAL 50 MEQ/50 ML VIAL IV ONE (18:03)
[2017-07-16 18:05] VITALS: O2SAT 94
[2017-07-16] MEDS ORDERED: fentaNYL CITRATE INJ 50 MCG/ML AMP IV ONE (18:19)
[2017-07-16 18:34] VITALS: BP 91/51
== END 2017-07-16 18:59 | disposition short-term general hospital (02) ==
LOC: ER 13:31
DX: J11.1 Influenza due to unidentified influenza virus with other respiratory manifestations (principal); E87.1 Hypo-osmolality and hyponatremia; E11.10 Type 2 diabetes mellitus with ketoacidosis without coma; I11.0 Hypertensive heart disease with heart failure; I50.9 Heart failure, unspecified; Z79.4 Long term (current) use of insulin; Z79.82 Long term (current) use of aspirin
CPT/HCPCS: 36415; 36600; 80053; 81001; 82009; 82803; 82805; 82947; 85025; 87804; 93005; J2270; J2405; J2765; J3010; J7030